=== PATIENT | female | born 1970 | race Two or more races ===

== ENCOUNTER 2016-08-05 12:33 | Emergency (ER) | payer SELFPAY ==
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
[2016-08-05 13:24] LABS: ALBUMIN SERUM 4.3 g/dL (3.5-5.0); BILIRUBIN,TOTAL 0.8 mg/dL (0.2-2.0); BUN/CREATININE RATIO 32.5; CREATININE SERUM 0.4 mg/dL (0.6-1.4); GLOM FILT RATE Estimated 126.7 mL/min (>60); POTASSIUM 3.8 mmol/L (3.5-5.1); PROTEIN TOTAL SERUM 7.6 g/dL (6.0-8.3)
== END 2016-08-05 16:22 | disposition home or self-care (01) ==
LOC: CED 12:33
PROVIDERS: Nurse Practitioner
DX: S16.1XXA Strain of muscle, fascia and tendon at neck level, initial encounter (principal); S20.219A Contusion of unspecified front wall of thorax, initial encounter; V43.52XA Car driver injured in collision with other type car in traffic accident, initial encounter
CPT/HCPCS: 36415; 70491; 71020; 80053; 84703; 96372; 99284; J1885; Q9967